=== PATIENT | female | born 1985 | race Caucasian/White ===

== ENCOUNTER 2021-12-11 20:48 | Inpatient (IN) | payer MEDICARE, MEDICAID ==
[~2021-12-11] VITALS: Ht 157.5 cm; Wt 112.0 kg
[2021-12-11] MEDS ORDERED: [UNRECOGNIZED DRUG - REMARK] (20:58)
[2021-12-11 22:00] LABS: HEMATOCRIT 41.2 % (36.0-47.0); HEMOGLOBIN 13.3 g/dl (12.0-15.5); MEAN CORPUSCULAR HEMOGLOBIN 28.5 pg (27.0-33.0); MEAN CORPUSCULAR HGB CONC 32.3 g/dl (32.0-36.5); MEAN CORPUSCULAR VOLUME 88.4 fl (80.0-96.0); PLATELET COUNT, AUTOMATED 279 10^3/uL (150-450); RED BLOOD COUNT 4.66 10^6/uL (4.00-5.40); WHITE BLOOD COUNT 11.6 10^3/uL (4.0-10.0)
[2021-12-11 22:27] LABS: RSV AMPLIFICATION NEGATIVE (NEGATIVE)
[2021-12-11 22:38] LABS: AMPHETAMINES LEVEL URINE NEGATIVE (NEGATIVE); BARBITURATES URINE NEGATIVE (NEGATIVE); BENZODIAZEPINES URINE POSITIVE (NEGATIVE); CANNABINOIDS URINE NEGATIVE (NEGATIVE); COCAINE METABOLITE URINE NEGATIVE (NEGATIVE); METHADONE URINE NEGATIVE (NEGATIVE); OPIATES URINE NEGATIVE (NEGATIVE); PHENCYCLIDINE URINE NEGATIVE (NEGATIVE)
[2021-12-11 22:52] LABS: ACETAMINOPHEN LEVEL < 2.0 UG/ML (10.0-30.0); ALBUMIN 3.5 GM/DL (3.2-5.2); ALT/SGPT 46 U/L (12-78); BILIRUBIN,DIRECT < 0.1 MG/DL (0.0-0.2); BILIRUBIN,TOTAL 0.3 MG/DL (0.2-1.0); BLOOD UREA NITROGEN 11 MG/DL (7-18); CALCIUM LEVEL 8.9 MG/DL (8.5-10.1); CARBON DIOXIDE LEVEL 28 MEQ/L (21-32); CHLORIDE LEVEL 102 MEQ/L (98-107); CREATININE FOR GFR 0.82 MG/DL (0.55-1.30); ETHYL ALCOHOL (ETHANOL) < 0.003 % (0.000-0.010); GLOMERULAR FILTRATION RATE > 60.0 (>60); GLUCOSE, FASTING 189 MG/DL (70-100); POTASSIUM SERUM 3.6 MEQ/L (3.5-5.1); SALICYLATE LEVEL < 1.7 MG/DL (5.0-30.0); SODIUM LEVEL 135 MEQ/L (136-145); TOTAL PROTEIN 6.9 GM/DL (6.4-8.2)
[2021-12-12 08:07] LABS: HCG, SERUM QUALITATIVE NEGATIVE (NEGATIVE)
[2021-12-12] MEDS ORDERED: TRAZ-257 PO (08:35)
[2021-12-12] MEDS ORDERED: ATOR1TAB21 PO (08:35)
[2021-12-12] MEDS ORDERED: DIAZ5TAB PO (08:35)
[2021-12-12] MEDS ORDERED: BUPR1TAB56 PO (08:35)
[2021-12-12] MEDS ORDERED: FURO40TA2 PO (08:35)
[2021-12-12] MEDS ORDERED: DOXY100T PO (08:35)
[2021-12-12] MEDS ORDERED: ZOLO100T PO (08:35)
[2021-12-12] MEDS ORDERED: AMOX875T2 PO (08:35)
[2021-12-12] MEDS ORDERED: PRAZ1CAP PO (08:35)
[2021-12-12] MEDS ORDERED: CYAN100050 PO (08:35)
[2021-12-12] MEDS ORDERED: HOME MED LIST COMPLETE! XX SCH (09:10)
[2021-12-12] MEDS ORDERED: NICOTINE 21MG/24HR 1 EA TRANSDERMAL TD ONE (11:55)
[2021-12-12] MEDS ORDERED: traZODone 100 MG TAB PO SCH (21:00)
[2021-12-12] MEDS: ATORVASTATIN 20 MG TAB PO SCH (21:00)
[2021-12-12] MEDS ORDERED: PRAZOSIN 1 MG CAP PO SCH (21:00)
[2021-12-12] MEDS: BACTRIM 160MG/800MG DS TAB PO SCH (21:00)
[2021-12-12] MEDS ORDERED: diazePAM 5MG TABLET PO ONE (21:35)
[2021-12-12] MEDS: PRAZOSIN 1 MG CAP PO SCH (21:46)
[2021-12-12] MEDS: traZODone 100 MG TAB PO SCH (21:47)
[2021-12-12] MEDS ORDERED: METF500T13 PO (23:15)
[2021-12-13] MEDS: SERTRALINE 100 MG TAB PO SCH (08:42)
[2021-12-13] MEDS: FUROSEMIDE 80 MG TAB PO SCH (08:42)
[2021-12-13] MEDS: BACTRIM 160MG/800MG DS TAB PO SCH ×2 (08:42→21:01)
[2021-12-13] MEDS: buPROPion (WELLBUTRIN SR) 100 MG SR TAB PO SCH (08:42)
[2021-12-13] MEDS: NICOTINE 21MG/24HR 1 EA TRANSDERMAL TD SCH (10:07)
[2021-12-13] MEDS: traZODone 100 MG TAB PO SCH (21:01)
[2021-12-13] MEDS: ATORVASTATIN 20 MG TAB PO SCH (21:02)
[2021-12-13] MEDS: PRAZOSIN 1 MG CAP PO SCH (21:06)
[2021-12-14] MEDS: FUROSEMIDE 80 MG TAB PO SCH (08:37)
[2021-12-14] MEDS: BACTRIM 160MG/800MG DS TAB PO SCH ×2 (08:37→20:44)
[2021-12-14] MEDS: SERTRALINE 100 MG TAB PO SCH (08:38)
[2021-12-14] MEDS: NICOTINE 21MG/24HR 1 EA TRANSDERMAL TD SCH (08:38)
[2021-12-14] MEDS: buPROPion (WELLBUTRIN SR) 100 MG SR TAB PO SCH (08:46)
[2021-12-14] MEDS ORDERED: ACETAMINOPHEN TAB 650MG DOSE (2X325MG) PO ONE (13:45)
[2021-12-14] MEDS ORDERED: MOM 30ML SUSPENSION UDC PO PRN (16:05)
[2021-12-14] MEDS ORDERED: MAALOX 30 ML SUSP *UDC PO PRN (16:05)
[2021-12-14 18:08] VITALS: BP 142/60
[2021-12-14] MEDS: PRAZOSIN 1 MG CAP PO SCH (20:43)
[2021-12-14] MEDS: IBUPROFEN 400MG TAB PO PRN (20:43)
[2021-12-14] MEDS: ATORVASTATIN 20 MG TAB PO SCH (20:44)
[2021-12-14] MEDS: traZODone 100 MG TAB PO SCH (21:47)
[2021-12-14] MEDS: hydrOXYzine 50 MG TAB PO PRN (21:47)
[2021-12-15 06:34] VITALS: BP_SYST 104; BP_SYST 154; BP_DIAS 58; BP_DIAS 84
[2021-12-15] MEDS: SERTRALINE 100 MG TAB PO SCH (08:31)
[2021-12-15] MEDS: NICOTINE 21MG/24HR 1 EA TRANSDERMAL TD SCH (08:31)
[2021-12-15] MEDS: FUROSEMIDE 80 MG TAB PO SCH (08:32)
[2021-12-15] MEDS: BACTRIM 160MG/800MG DS TAB PO SCH (08:32)
[2021-12-15] MEDS ORDERED: buPROPion (WELLBUTRIN SR) 100 MG SR TAB PO SCH (09:00)
[2021-12-15] MEDS ORDERED: MUPIROCIN 2% OINT 22 GM TUBE TOP SCH (09:00)
[2021-12-15] MEDS ORDERED: GLUCAGON INJ 1MG VIAL SC PRN (10:40)
[2021-12-15] MEDS ORDERED: DEXTROSE 50% 50 ML SYRINGE IV PRN (10:40)
[2021-12-15] MEDS ORDERED: GLUCOSE 4GM CHEW TABLET PO PRN (10:40)
[2021-12-15] MEDS: INSULIN LISPRO (NovoLOG) PER UNIT SC SCH ×3 (12:00→20:51)
[2021-12-15] MEDS: metFORMIN (GLUCOPHAGE) 500MG TAB PO SCH ×2 (12:00→17:31)
[2021-12-15] MEDS ORDERED: OMEP40CA4 PO (12:49)
[2021-12-15 18:16] VITALS: BP 132/79
[2021-12-15 18:50] LABS: HEMOGLOBIN A1c 6.3 %
[2021-12-15] MEDS: hydrOXYzine 50 MG TAB PO PRN (20:54)
[2021-12-15] MEDS: ATORVASTATIN 20 MG TAB PO SCH (20:54)
[2021-12-15] MEDS: PRAZOSIN 1 MG CAP PO SCH (20:54)
[2021-12-15] MEDS: IBUPROFEN 400MG TAB PO PRN (20:55)
[2021-12-15] MEDS: traZODone 100 MG TAB PO SCH (22:53)
[2021-12-16 06:10] VITALS: BP 131/78
[2021-12-16] MEDS: INSULIN LISPRO (NovoLOG) PER UNIT SC SCH ×4 (06:55→21:00)
[2021-12-16] MEDS: FLUCONAZOLE 50MG TABLET PO SCH (08:28)
[2021-12-16] MEDS: FUROSEMIDE 80 MG TAB PO SCH (08:28)
[2021-12-16] MEDS: NICOTINE 21MG/24HR 1 EA TRANSDERMAL TD SCH (08:28)
[2021-12-16] MEDS: SERTRALINE 100 MG TAB PO SCH (08:29)
[2021-12-16] MEDS: IBUPROFEN 400MG TAB PO PRN (08:29)
[2021-12-16] MEDS: metFORMIN (GLUCOPHAGE) 500MG TAB PO SCH ×2 (08:29→18:51)
[2021-12-16] MEDS: buPROPion (WELLBUTRIN SR) 100 MG SR TAB PO SCH (08:30)
[2021-12-16 16:50] VITALS: BP 115/57
[2021-12-16] MEDS: MAGIC MOUTHWASH SUSPENSION BTL SS SCH (17:30)
[2021-12-16] MEDS ORDERED: ACETAMINOPHEN TAB 650MG DOSE (2X325MG) PO PRN (18:05)
[2021-12-16] MEDS: NYSTATIN 500,000 U/5 ML SUSP UDC PO SCH (21:00)
[2021-12-16] MEDS: ATORVASTATIN 20 MG TAB PO SCH (21:09)
[2021-12-16] MEDS: PRAZOSIN 1 MG CAP PO SCH (21:09)
[2021-12-16] MEDS: QUEtiapine FUMARATE 100 MG TAB PO SCH (22:04)
[2021-12-16] MEDS: traZODone 100 MG TAB PO SCH (22:04)
[2021-12-17] MEDS ORDERED: MAGIC MOUTHWASH SUSPENSION BTL SS ONE (01:00)
[2021-12-17] MEDS: INSULIN LISPRO (NovoLOG) PER UNIT SC SCH ×4 (06:32→20:33)
[2021-12-17 07:13] VITALS: BP 107/57
[2021-12-17] MEDS ORDERED: MAGIC MOUTHWASH SUSPENSION BTL SSP SCH (07:30)
[2021-12-17] MEDS: NYSTATIN 500,000 U/5 ML SUSP UDC PO SCH ×4 (08:52→20:33)
[2021-12-17] MEDS: MAGIC MOUTHWASH SUSPENSION BTL SS SCH ×3 (08:52→19:07)
[2021-12-17] MEDS: buPROPion (WELLBUTRIN SR) 100 MG SR TAB PO SCH (08:53)
[2021-12-17] MEDS: metFORMIN (GLUCOPHAGE) 500MG TAB PO SCH ×2 (08:54→19:07)
[2021-12-17] MEDS: NICOTINE 21MG/24HR 1 EA TRANSDERMAL TD SCH (08:54)
[2021-12-17] MEDS: FUROSEMIDE 80 MG TAB PO SCH (08:55)
[2021-12-17] MEDS: SERTRALINE HCL 50 MG TAB PO SCH (08:55)
[2021-12-17 18:33] VITALS: BP 140/57
[2021-12-17] MEDS: PRAZOSIN 1 MG CAP PO SCH (20:29)
[2021-12-17] MEDS: ATORVASTATIN 20 MG TAB PO SCH (20:29)
[2021-12-17] MEDS: QUEtiapine FUMARATE 100 MG TAB PO SCH (21:53)
[2021-12-17] MEDS: traZODone 100 MG TAB PO SCH (21:53)
[2021-12-18] MEDS: INSULIN LISPRO (NovoLOG) PER UNIT SC SCH ×4 (06:34→20:47)
[2021-12-18] MEDS: MAGIC MOUTHWASH SUSPENSION BTL SS SCH ×3 (06:34→17:26)
[2021-12-18 06:38] VITALS: BP 113/58
[2021-12-18] MEDS: FUROSEMIDE 80 MG TAB PO SCH (08:39)
[2021-12-18] MEDS: NICOTINE 21MG/24HR 1 EA TRANSDERMAL TD SCH (08:40)
[2021-12-18] MEDS: SERTRALINE HCL 50 MG TAB PO SCH (08:40)
[2021-12-18] MEDS: metFORMIN (GLUCOPHAGE) 500MG TAB PO SCH ×2 (08:41→17:25)
[2021-12-18] MEDS: buPROPion (WELLBUTRIN SR) 100 MG SR TAB PO SCH (08:41)
[2021-12-18] MEDS: NYSTATIN 500,000 U/5 ML SUSP UDC PO SCH ×4 (08:43→20:50)
[2021-12-18 17:54] VITALS: BP 112/57
[2021-12-18] MEDS: traZODone 100 MG TAB PO SCH (20:49)
[2021-12-18] MEDS: QUEtiapine FUMARATE 100 MG TAB PO SCH (20:49)
[2021-12-18] MEDS: PRAZOSIN 1 MG CAP PO SCH (20:49)
[2021-12-18] MEDS: ATORVASTATIN 20 MG TAB PO SCH (20:49)
[2021-12-19] MEDS: INSULIN LISPRO (NovoLOG) PER UNIT SC SCH ×4 (06:56→21:00)
[2021-12-19] MEDS: MAGIC MOUTHWASH SUSPENSION BTL SS SCH ×3 (07:30→17:10)
[2021-12-19] MEDS: metFORMIN (GLUCOPHAGE) 500MG TAB PO SCH ×2 (08:00→17:36)
[2021-12-19 08:42] VITALS: BP 115/65
[2021-12-19] MEDS: FUROSEMIDE 80 MG TAB PO SCH (09:00)
[2021-12-19] MEDS: NICOTINE 21MG/24HR 1 EA TRANSDERMAL TD SCH (09:00)
[2021-12-19] MEDS: NYSTATIN 500,000 U/5 ML SUSP UDC PO SCH ×4 (09:00→21:00)
[2021-12-19] MEDS: FLUCONAZOLE 50MG TABLET PO SCH (09:00)
[2021-12-19] MEDS: buPROPion (WELLBUTRIN SR) 100 MG SR TAB PO SCH (09:00)
[2021-12-19] MEDS: SERTRALINE 100 MG TAB PO SCH (09:50)
[2021-12-19] MEDS: traZODone 100 MG TAB PO SCH (21:13)
[2021-12-19] MEDS: ATORVASTATIN 20 MG TAB PO SCH (21:13)
[2021-12-19] MEDS: QUEtiapine FUMARATE 100 MG TAB PO SCH (21:13)
[2021-12-19] MEDS: PRAZOSIN 1 MG CAP PO SCH (21:13)
[2021-12-20 06:38] VITALS: BP 126/75
[2021-12-20] MEDS: INSULIN LISPRO (NovoLOG) PER UNIT SC SCH ×4 (06:52→20:16)
[2021-12-20] MEDS: MAGIC MOUTHWASH SUSPENSION BTL SS SCH ×3 (06:58→17:04)
[2021-12-20] MEDS: metFORMIN (GLUCOPHAGE) 500MG TAB PO SCH ×2 (08:00→17:04)
[2021-12-20] MEDS: SERTRALINE 100 MG TAB PO SCH (09:00)
[2021-12-20] MEDS: NICOTINE 21MG/24HR 1 EA TRANSDERMAL TD SCH ×2 (09:00→13:18)
[2021-12-20] MEDS: buPROPion (WELLBUTRIN SR) 100 MG SR TAB PO SCH (09:00)
[2021-12-20] MEDS: FUROSEMIDE 80 MG TAB PO SCH (09:00)
[2021-12-20] MEDS: NYSTATIN 500,000 U/5 ML SUSP UDC PO SCH ×4 (09:00→20:16)
[2021-12-20 16:37] VITALS: BP 120/82
[2021-12-20] MEDS: traZODone 100 MG TAB PO SCH (20:14)
[2021-12-20] MEDS: QUEtiapine FUMARATE 100 MG TAB PO SCH (20:14)
[2021-12-20] MEDS: PRAZOSIN 1 MG CAP PO SCH (20:14)
[2021-12-20] MEDS: ATORVASTATIN 20 MG TAB PO SCH (20:14)
[2021-12-20] MEDS: hydrOXYzine 50 MG TAB PO PRN (20:15)
[2021-12-21] MEDS: MAGIC MOUTHWASH SUSPENSION BTL SS SCH ×3 (06:03→17:01)
[2021-12-21] MEDS: INSULIN LISPRO (NovoLOG) PER UNIT SC SCH ×4 (06:03→20:59)
[2021-12-21 06:23] VITALS: BP 104/57
[2021-12-21] MEDS: buPROPion (WELLBUTRIN SR) 100 MG SR TAB PO SCH (08:48)
[2021-12-21] MEDS: NYSTATIN 500,000 U/5 ML SUSP UDC PO SCH ×4 (08:48→21:00)
[2021-12-21] MEDS: SERTRALINE 100 MG TAB PO SCH (08:49)
[2021-12-21] MEDS: metFORMIN (GLUCOPHAGE) 500MG TAB PO SCH ×2 (08:49→17:03)
[2021-12-21] MEDS: FUROSEMIDE 80 MG TAB PO SCH (08:49)
[2021-12-21] MEDS: NICOTINE 21MG/24HR 1 EA TRANSDERMAL TD SCH (08:49)
[2021-12-21 15:55] VITALS: BP 121/74
[2021-12-21] MEDS: PRAZOSIN 1 MG CAP PO SCH (21:02)
[2021-12-21] MEDS: ATORVASTATIN 20 MG TAB PO SCH (21:02)
[2021-12-21] MEDS: traZODone 100 MG TAB PO SCH (21:02)
[2021-12-21] MEDS: QUEtiapine FUMARATE 100 MG TAB PO SCH (21:02)
[2021-12-21] MEDS: hydrOXYzine 50 MG TAB PO PRN (21:37)
[2021-12-22 06:13] VITALS: BP 125/58
[2021-12-22] MEDS: MAGIC MOUTHWASH SUSPENSION BTL SS SCH ×3 (06:45→12:25)
[2021-12-22] MEDS: INSULIN LISPRO (NovoLOG) PER UNIT SC SCH ×4 (06:45→20:54)
[2021-12-22] MEDS: NYSTATIN 500,000 U/5 ML SUSP UDC PO SCH ×4 (09:00→20:55)
[2021-12-22] MEDS: buPROPion (WELLBUTRIN SR) 100 MG SR TAB PO SCH (10:10)
[2021-12-22] MEDS: SERTRALINE 100 MG TAB PO SCH (10:11)
[2021-12-22] MEDS: metFORMIN (GLUCOPHAGE) 500MG TAB PO SCH ×2 (10:11→17:35)
[2021-12-22] MEDS: FUROSEMIDE 80 MG TAB PO SCH (10:11)
[2021-12-22] MEDS: NICOTINE 21MG/24HR 1 EA TRANSDERMAL TD SCH (10:12)
[2021-12-22] MEDS: NICOTINE POLACRILEX 2 MG GUM PO PRN ×3 (14:25→21:00)
[2021-12-22 18:30] VITALS: BP 134/72
[2021-12-22] MEDS: PRAZOSIN 1 MG CAP PO SCH (20:59)
[2021-12-22] MEDS: ATORVASTATIN 20 MG TAB PO SCH (20:59)
[2021-12-22] MEDS: QUEtiapine FUMARATE 100 MG TAB PO SCH (20:59)
[2021-12-22] MEDS: traZODone 100 MG TAB PO SCH (20:59)
[2021-12-23 06:51] VITALS: BP 130/86
[2021-12-23] MEDS: MAGIC MOUTHWASH SUSPENSION BTL SS SCH ×3 (08:49→17:19)
[2021-12-23] MEDS: NYSTATIN 500,000 U/5 ML SUSP UDC PO SCH ×4 (08:50→21:00)
[2021-12-23] MEDS: SERTRALINE 100 MG TAB PO SCH (08:57)
[2021-12-23] MEDS: buPROPion (WELLBUTRIN SR) 100 MG SR TAB PO SCH (08:57)
[2021-12-23] MEDS: FUROSEMIDE 80 MG TAB PO SCH (08:57)
[2021-12-23] MEDS: metFORMIN (GLUCOPHAGE) 500MG TAB PO SCH ×2 (08:57→17:18)
[2021-12-23] MEDS: INSULIN LISPRO (NovoLOG) PER UNIT SC SCH ×4 (08:57→21:00)
[2021-12-23] MEDS: NICOTINE POLACRILEX 2 MG GUM PO PRN ×4 (08:58→21:21)
[2021-12-23] MEDS: NICOTINE 21MG/24HR 1 EA TRANSDERMAL TD SCH (09:00)
[2021-12-23] MEDS: PROPRANOLOL 10 MG TAB PO SCH ×3 (10:30→21:22)
[2021-12-23 16:25] VITALS: BP 128/62
[2021-12-23] MEDS: hydrOXYzine 50 MG TAB PO PRN (21:21)
[2021-12-23] MEDS: QUEtiapine FUMARATE 100 MG TAB PO SCH (21:21)
[2021-12-23] MEDS: ATORVASTATIN 20 MG TAB PO SCH (21:22)
[2021-12-23] MEDS: traZODone 100 MG TAB PO SCH (21:22)
[2021-12-23] MEDS: PRAZOSIN 1 MG CAP PO SCH (21:23)
[2021-12-24] MEDS: INSULIN LISPRO (NovoLOG) PER UNIT SC SCH ×4 (06:13→21:00)
[2021-12-24] MEDS: MAGIC MOUTHWASH SUSPENSION BTL SS SCH ×3 (06:13→17:02)
[2021-12-24 06:34] VITALS: BP 126/58
[2021-12-24] MEDS: metFORMIN (GLUCOPHAGE) 500MG TAB PO SCH ×2 (08:13→18:00)
[2021-12-24] MEDS: FUROSEMIDE 80 MG TAB PO SCH (08:13)
[2021-12-24] MEDS: SERTRALINE 100 MG TAB PO SCH (08:13)
[2021-12-24] MEDS: PROPRANOLOL 10 MG TAB PO SCH ×3 (08:14→21:55)
[2021-12-24] MEDS: buPROPion (WELLBUTRIN SR) 100 MG SR TAB PO SCH (08:14)
[2021-12-24] MEDS: NICOTINE POLACRILEX 2 MG GUM PO PRN ×3 (08:14→20:38)
[2021-12-24] MEDS: NICOTINE 21MG/24HR 1 EA TRANSDERMAL TD SCH (08:26)
[2021-12-24] MEDS: NYSTATIN 500,000 U/5 ML SUSP UDC PO SCH ×3 (08:26→17:00)
[2021-12-24] MEDS: QUEtiapine FUMARATE 100 MG TAB PO SCH (21:55)
[2021-12-24] MEDS: traZODone 100 MG TAB PO SCH (21:55)
[2021-12-24] MEDS: ATORVASTATIN 20 MG TAB PO SCH (21:55)
[2021-12-24] MEDS: hydrOXYzine 50 MG TAB PO PRN (21:55)
[2021-12-24] MEDS: PRAZOSIN 1 MG CAP PO SCH (21:56)
[2021-12-25] MEDS: INSULIN LISPRO (NovoLOG) PER UNIT SC SCH ×4 (06:44→21:00)
[2021-12-25] MEDS: MAGIC MOUTHWASH SUSPENSION BTL SS SCH ×3 (06:44→17:03)
[2021-12-25] MEDS: metFORMIN (GLUCOPHAGE) 500MG TAB PO SCH ×2 (08:52→17:01)
[2021-12-25] MEDS: SERTRALINE 100 MG TAB PO SCH (08:52)
[2021-12-25] MEDS: NICOTINE POLACRILEX 2 MG GUM PO PRN ×3 (08:52→18:28)
[2021-12-25] MEDS: PROPRANOLOL 10 MG TAB PO SCH ×3 (08:52→22:04)
[2021-12-25] MEDS: buPROPion (WELLBUTRIN SR) 100 MG SR TAB PO SCH (08:52)
[2021-12-25] MEDS: FUROSEMIDE 80 MG TAB PO SCH (08:53)
[2021-12-25 11:54] LABS: BASO % 0.4 % (0.0-1.0); EOS # 0.2 10^3/uL (0.0-0.5); EOS % 3.5 % (0.0-3.0); HEMATOCRIT 39.6 % (36.0-47.0); HEMOGLOBIN 12.7 g/dl (12.0-15.5); LYMPH # 2.3 10^3/uL (1.5-5.0); MEAN CORPUSCULAR HEMOGLOBIN 28.8 pg (27.0-33.0); MEAN CORPUSCULAR HGB CONC 32.1 g/dl (32.0-36.5); MEAN CORPUSCULAR VOLUME 89.8 fl (80.0-96.0); MONO # 0.7 10^3/uL (0.0-0.8); NEUTROPHILS # 3.6 10^3/uL (1.5-8.5); NEUTROPHILS % 52.8 % (36.0-66.0); PLATELET COUNT, AUTOMATED 329 10^3/uL (150-450); RED BLOOD COUNT 4.41 10^6/uL (4.00-5.40); WHITE BLOOD COUNT 6.8 10^3/uL (4.0-10.0)
[2021-12-25 17:01] VITALS: BP 132/65
[2021-12-25] MEDS: traZODone 100 MG TAB PO SCH (22:04)
[2021-12-25] MEDS: ATORVASTATIN 20 MG TAB PO SCH (22:04)
[2021-12-25] MEDS: QUEtiapine FUMARATE 100 MG TAB PO SCH (22:04)
[2021-12-25] MEDS: PRAZOSIN 1 MG CAP PO SCH (22:04)
[2021-12-25] MEDS: hydrOXYzine 50 MG TAB PO PRN (23:02)
[2021-12-26 06:17] VITALS: BP 100/55
[2021-12-26] MEDS: MAGIC MOUTHWASH SUSPENSION BTL SS SCH ×3 (06:40→17:06)
[2021-12-26] MEDS: INSULIN LISPRO (NovoLOG) PER UNIT SC SCH ×4 (06:41→21:00)
[2021-12-26] MEDS: metFORMIN (GLUCOPHAGE) 500MG TAB PO SCH ×2 (08:00→18:26)
[2021-12-26] MEDS: PROPRANOLOL 10 MG TAB PO SCH ×3 (08:49→21:16)
[2021-12-26] MEDS: NICOTINE POLACRILEX 2 MG GUM PO PRN ×3 (08:49→18:28)
[2021-12-26] MEDS: buPROPion (WELLBUTRIN SR) 100 MG SR TAB PO SCH (08:49)
[2021-12-26] MEDS: FUROSEMIDE 80 MG TAB PO SCH (08:49)
[2021-12-26] MEDS: SERTRALINE 100 MG TAB PO SCH (08:50)
[2021-12-26] MEDS: hydrOXYzine 50 MG TAB PO PRN ×2 (13:12→21:13)
[2021-12-26] MEDS: traZODone 100 MG TAB PO SCH (21:13)
[2021-12-26] MEDS: ATORVASTATIN 20 MG TAB PO SCH (21:13)
[2021-12-26] MEDS: QUEtiapine FUMARATE 100 MG TAB PO SCH (21:13)
[2021-12-26 21:16] VITALS: BP 119/67
[2021-12-26] MEDS: PRAZOSIN 1 MG CAP PO SCH (21:16)
[2021-12-27] MEDS: MAGIC MOUTHWASH SUSPENSION BTL SS SCH ×2 (06:30→11:47)
[2021-12-27] MEDS: INSULIN LISPRO (NovoLOG) PER UNIT SC SCH ×2 (06:30→11:47)
[2021-12-27 06:33] VITALS: BP 113/61
[2021-12-27] MEDS: metFORMIN (GLUCOPHAGE) 500MG TAB PO SCH (08:00)
[2021-12-27] MEDS: FUROSEMIDE 80 MG TAB PO SCH (09:00)
[2021-12-27] MEDS: buPROPion (WELLBUTRIN SR) 100 MG SR TAB PO SCH (09:00)
[2021-12-27] MEDS: PROPRANOLOL 10 MG TAB PO SCH (09:00)
[2021-12-27] MEDS: SERTRALINE 100 MG TAB PO SCH (09:00)
[2021-12-27] MEDS ORDERED: MINI1CAP PO (10:15)
[2021-12-27] MEDS ORDERED: PROP10TA56 PO (10:15)
[2021-12-27] MEDS ORDERED: TRAZ-257 PO (10:15)
[2021-12-27] MEDS ORDERED: NICO2GUM PO (10:15)
[2021-12-27] MEDS ORDERED: ZOLO100T PO (10:15)
[2021-12-27] MEDS ORDERED: QUET100T2 PO (10:15)
[2021-12-27] MEDS ORDERED: BUPR1TAB56 PO (10:15)
== END 2021-12-27 12:30 | disposition home or self-care (01) | DRG 882 ==
LOC: M ED 20:48 → M ED INP 12-14 16:05 → M PSY 12-14 17:15
PROVIDERS: ADMIT Student in an Organized Health Care Education/Training Program; ATTEND Student in an Organized Health Care Education/Training Program
DX: F43.10 Post-traumatic stress disorder, unspecified (principal); R45.851 Suicidal ideations; F31.9 Bipolar disorder, unspecified; F60.3 Borderline personality disorder; F79 Unspecified intellectual disabilities; Z76.5 Malingerer [conscious simulation]; F84.9 Pervasive developmental disorder, unspecified; Z79.899 Other long term (current) drug therapy; Z88.8 Allergy status to other drugs, medicaments and biological substances; E11.9 Type 2 diabetes mellitus without complications; F41.9 Anxiety disorder, unspecified; F17.200 Nicotine dependence, unspecified, uncomplicated; B00.1 Herpesviral vesicular dermatitis; K21.9 Gastro-esophageal reflux disease without esophagitis; B37.3 Candidiasis of vulva and vagina; I89.0 Lymphedema, not elsewhere classified; G47.00 Insomnia, unspecified; E66.01 Morbid (severe) obesity due to excess calories